=== PATIENT | male | born 1970 | race Caucasian/White ===

== ENCOUNTER 2023-07-02 15:58 | Outpatient (CLI) | payer OTHER, BC, SELFPAY ==
--- NOTE | ~2023-07-02 | MR_ITS ---
EXAMINATION: MR knee LT wo con DATE: 07/02/2023 16:37 INDICATION: Left knee pain TECHNIQUE: Magnetic resonance imaging (MRI) of the left knee was performed without intravenous contra st. Sequences included coronal PD-weighted FSE, coronal PD-weighted FS FSE, sagittal T2-weighted FSE , sagittal PD-weighted FS FSE and axial PD weighted fat saturated FSE. COMPARISON: None. FINDINGS: Medial compartment: Avulsion with complex tear at the posterior root of the medial meniscus. There is medial extrusion of the meniscal body. Deep chondral ulceration and fissuring along the anterior and central weightbeari ng medial femoral condyle with small amount of underlying subarticular edema-like signal change along the medial margin of the central weightbearing medial femoral condyle. There is additional partial t hickness cartilage loss and deep fissuring at the anterior half of the medial tibial plateau with add itional subarticular edema-like signal change along the medial rim. Lateral compartment: Lateral meniscus is normal. Small region of partial-thickness chondral ulceration and deep fissuring at the posterior medial aspect of the lateral tibial plateau. Subtle partial-thickness chondral fissu re at the anterior weightbearing lateral femoral condyle. No degenerative subchondral changes. Patellofemoral compartment: Mild partial-thickness chondral fissuring along the lateral patellar facet. There is partial thicknes s chondral ulceration and some deep fissuring at the trochlear groove and lateral trochlea with a cou ple tiny foci of underlying cortical irregularity. Less severe partial thickness chondral ulceration without degenerative subchondral changes at the medial trochlea. Ligaments and tendons: Anterior and posterior cruciate ligaments are normal. The medial collateral ligament and fibular payal ateral ligament complex are normal. Mild distal quadriceps tendinopathy with small enthesophytes at i ts patellar insertion. Additional mild tendinopathy of the proximal and distal most patellar tendon. The visualized medial and lateral hamstring tendons as well as the iliotibial band are normal. Fluid: Small left knee joint effusion. No loose osteochondral bodies identified. There is a medial plical ba nd which extends minimally across the medial rim of the medial trochlea. Small Enciso's cyst. Osseous/other: Bone alignment is normal. No fracture or pathologic marrow replacing process. IMPRESSION: 1. Avulsion with focal complex tear at the posterior root of the medial meniscus. 2. Tricompartmental osteoarthritis, moderate severity with high-grade chondromalacia in the medial co mpartment, mild with high-grade chondromalacia in the patellofemoral compartment and minimal with sma ll focus of moderate grade chondromalacia in the lateral compartment. 3. Small left knee joint effusion and small Enciso's cyst. Reviewed, dictated and finalized at location A. IN[employer] ADMINISTRATOR IMPRESSION: 1. Avulsion with focal complex tear at the posterior root of the medial meniscu s. 2. Tricompartmental osteoarthritis, moderate severity with high-grade chondroma lacia in the medial compartment, mild with high-grade chondromalacia in the pat ellofemoral compartment and minimal with small focus of moderate grade chondrom alacia in the lateral compartment. 3. Small left knee joint effusion and small Enciso's cyst.
== END 2023-07-02 15:59 ==
LOC: MICIMG 16:02
DX: S83.232A Complex tear of medial meniscus, current injury, left knee, initial encounter (principal); M17.12 Unilateral primary osteoarthritis, left knee; M94.262 Chondromalacia, left knee; M71.22 Synovial cyst of popliteal space [Baker], left knee; X58.XXXA Exposure to other specified factors, initial encounter
CPT/HCPCS: 73721

== ENCOUNTER 2024-01-02 07:31 | Outpatient (CLI) | payer OTHER, BC, SELFPAY ==
--- NOTE | ~2024-01-02 | MR_ITS ---
EXAMINATION: MR knee LT wo con DATE: 01/02/2024 08:19 INDICATION: Medial left knee pain TECHNIQUE: Magnetic resonance imaging (MRI) of the left knee was performed without intravenous contra st. Sequences included coronal PD-weighted FSE, coronal PD-weighted FS FSE, sagittal T2-weighted FSE , sagittal PD-weighted FS FSE and axial PD weighted fat saturated FSE. COMPARISON: None. FINDINGS: Medial compartment: Postoperative changes consistent with interval reduction and fixation of the previously avulsed media l root of the medial meniscus. The fixation appears to remain intact but with persistent medial extru darin of the meniscal body. There is residual increased signal extends to contact the inferior articul ar surface of the more medial aspect of the posterior root consistent with residual versus. Complex t ear. Thin curvilinear low signal which loops from the region of the repair medially across the centra l aspect of the medial tibial plateau and back towards the site of the repair suspicious for displace d suture or other fixation material. Deep chondral ulceration which appears full/near full-thickness with underlying edema-like marrow signal change along portions of the anterior to central weightbeari ng medial femoral condyle and at the central to medial aspect of the medial tibial plateau. Lateral compartment: There is internal increased signal at the body of the lateral meniscus which does not obviously conta ct the articular surface to suggest meniscal tear consistent with mucoid degeneration. No significant change in a region of shallow chondral ulceration with deep fissuring without degenerative subchondr al changes extending along the posterior margin of the lateral tibial plateau. Additional partial-thi ckness chondral fissuring at the anterior weightbearing lateral femoral condyle. Patellofemoral compartment: Deep chondral ulceration and fissuring at the inferior aspect of the lateral trochlea. Additional par tial thickness chondral ulceration at the medial trochlea and trochlear groove. Shallow chondral surf filippo irregularity at the patellar apical ridge and portions of the medial and lateral patellar facets. Ligaments and tendons: Anterior and posterior cruciate ligaments are normal. The medial collateral ligament and fibular payal ateral ligament complex are normal. Mild distal quadriceps tendinopathy with small enthesophytes at i ts patellar insertion. Mild tendinopathy at the proximal and distal patellar tendon with a couple int ervening bands of magic angle artifact at the proximal tendon. The visualized medial and lateral hams tring tendons as well as the iliotibial band are normal. Fluid: Small to moderate-sized left knee joint effusion. No loose osteochondral bodies identified. Small James er's cyst. Osseous/other: No fracture or pathologic marrow replacing process. IMPRESSION: 1. Interval repair of a previously avulsed posterior root of the medial meniscus which appears intact but with suggestion of a displaced suture which loops between the articular surfaces of the medial t ibial plateau and anterior weightbearing medial femoral condyle. 2. Residual versus repaired complex tear of the posterior horn of the medial meniscus. Correlate with details of prior surgery and if clinically indicated this could be more definitively distinguished w ith MR arthrogram. 3. Interval progression of now moderate to severe osteoarthritis in the medial compartment with high- grade chondral malacia along both medial tibial plateau and anterior to central weightbearing medial femoral condyle. 4. No significant change in mild lateral and patellofemoral osteoarthritis with high-grade patellofem oral and moderate grade lateral compartment chondromalacia. 5. Small to moderate-sized left knee joint effusion and small Enciso's cyst. Reviewed, dictated and finaliz
== END 2024-01-02 07:32 ==
DX: Z98.890 Other specified postprocedural states (principal); M71.22 Synovial cyst of popliteal space [Baker], left knee; M25.462 Effusion, left knee
CPT/HCPCS: 73721